=== PATIENT | male | born 1940 | race Caucasian/White ===

== ENCOUNTER 2020-02-20 12:39 | Outpatient (CLI) | payer MEDICARE ==
--- NOTE | 2020-02-20 16:12 | CT ---
CT lumbar spine without contrast: HISTORY: Lumbar spondylosis. Chronic low back pain with pain radiating into right buttock. History of prior ba ck surgeries. COMPARISON: No prior CT exams of the lumbar spine available FINDINGS: Dense vascular calcifications are seen in the abdominal aorta and involving the iliac arteries. There is motion involving the retroperitoneal structures, but no additional findings are seen on this nonenhanced CT exam. Mild right convex curvature lumbar spine is present. Vacuum phenomenon is seen at multiple levels of the lumbar spine with multilevel degenerative changes seen. 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 No fracture or subluxation is seen involving the lumbar spine. T12-L1: Disc osteophyte complex is present resulting in mild central canal narrowing. Neural foramina are patent L1-2: Prominent loss of intervertebral disc height. Broad-based disc osteophyte complex is present wi th slight effacement of ventral aspect of the thecal sac. Mild bilateral neural foraminal narrowing is present. L2-3: Vacuum phenomenon in the intervertebral disc with loss of intervertebral disc height. Prominent Schmorl's node is seen in the inferior endplate L2 vertebral body. Broad-based disc osteophyte complex is present. Facet hypertrophic changes and ligamentous thickening are noted. Findings result in mild to moderate central canal narrowing with mild/moderate bilateral neural foraminal narrowing. L3-4: Loss of intervertebral disc height with vacuum phenomenon in the intervertebral disc. Disc oste ophyte complex is present with facet hypertrophic changes. Findings result in mild narrowing of the central spinal canal with narrowing of the right lateral recess. Mild/moderate right and moderate lef t-sided neural foraminal narrowing are present. L4-5: Loss of intervertebral disc height with endplate degenerative changes. Facet hypertrophic aaron es are seen. Mild disc osteophyte complex is noted. Moderate to severe right and mild/moderate left-sided neural foraminal narrowing are present. L5-S1: Mild facet degenerative changes are present. There is no significant disc bulge or disc hernia tion. There is mild bilateral neural foraminal narrowing. IMPRESSION: Multilevel degenerative changes throughout the lumbar spine. Greatest degree of neural foraminal narr owing is seen on the right at the L4-5 level where there is severe right-sided neural foraminal narrowing related to disc osteophyte complex and facet hypertrophic changes.
== END 2020-02-20 12:40 | disposition home or self-care (01) ==
LOC: SCSCT 12:39
PROVIDERS: ATTEND Neurological Surgery
DX: M47.16 Other spondylosis with myelopathy, lumbar region (principal); M54.5 Low back pain; M48.061 Spinal stenosis, lumbar region without neurogenic claudication
CPT/HCPCS: 72131

== ENCOUNTER 2022-06-15 05:54 | Day surgery (SDC) | payer MEDICARE ==
[2022-06-14 11:53] VITALS: BMI 31.0
[2022-06-15] MEDS ORDERED: Gentamicin 80 MG/2 ML VIAL ONE (06:24)
[2022-06-15] MEDS ORDERED: CEFAZOLIN 1 GM VIAL ONE (06:24)
[2022-06-15] MEDS ORDERED: Lidocaine 1% (PF) 30 ML VIAL ONE (06:25)
[2022-06-15] MEDS ORDERED: Vancomycin (BATCH) 1.5 GRAM/300 ML BAG ONE (06:50)
[2022-06-15] MEDS ORDERED: FENTANYL 50 MCG/ML 1 ML VIAL ONE ×2 (07:10→07:31)
[2022-06-15] MEDS ORDERED: Midazolam HCl 2 mg/2 ml Vial ONE ×2 (07:10→07:30)
== END 2022-06-15 12:51 | disposition home or self-care (01) ==
LOC: SDC 05:54
PROVIDERS: ATTEND Internal Medicine Cardiovascular Disease
PROC: 0JH604Z Insertion of Pacemaker, Single Chamber into Chest Subcutaneous Tissue and Fascia, Open Approach (ICD-10-PCS; principal; 2022-06-15)
PROC: 02HK3JZ Insertion of Pacemaker Lead into Right Ventricle, Percutaneous Approach (ICD-10-PCS; 2022-06-15)
DX: I49.5 Sick sinus syndrome (principal); R00.1 Bradycardia, unspecified; Z79.01 Long term (current) use of anticoagulants; Z79.02 Long term (current) use of antithrombotics/antiplatelets; Z79.899 Other long term (current) drug therapy; Z88.5 Allergy status to narcotic agent
CPT/HCPCS: 71045; 93005; J3010; J3370; 33207; 75820; 99152; 99153; J0690; J1580; J2001; J2250